=== PATIENT | female | born 1955 | race Caucasian/White ===

== ENCOUNTER 2021-11-06 04:39 | Inpatient (IN) ==
[2021-11-06] MEDS ORDERED: 0.9 % Sodium Chloride 1,000 ML IVC ONE (05:02)
[2021-11-06] MEDS ORDERED: Ondansetron 4 MG/2 ML VIAL IVP ONE ×2 (05:15→06:53)
[2021-11-06 05:46] LABS: Basophils % 0.4 %; Eosinophils % 0.2 %; Hemoglobin 15.7 g/dL (11.5-15.4); Immature Granulocytes % 0.2 % (0-4); Lymphocytes # 1.4 K/mcL (0.6-4.6); Lymphocytes % 26.4 %; Mean Corpuscular HGB Conc 33.4 g/dL (31.6-35.5); Mean Corpuscular Hemoglobin 31.2 pg (28.0-33.3); Mean Corpuscular Volume 93.4 fL (83.0-100.0); Mean Platelet Volume 12.1 fL (9.4-12.4); Monocytes # 0.3 K/mcL (0.0-1.3); Monocytes % 4.9 %; Neutrophils # 3.6 K/mcL (1.6-8.9); Platelet Count 238 K/mcL (140-400); Red Blood Count 5.03 M/mcL (3.82-4.97); Segmented Neutrophils % 67.9 %; White Blood Count 5.3 K/mcL (4.3-11.1)
[2021-11-06 06:08] LABS: Alanine Aminotransferase 26 Units/L (7-52); Albumin 4.2 g/dL (3.5-5.7); Albumin/Globulin Ratio 1.3 (1.1-2.2); Alkaline Phosphatase 110 Units/L (34-104); Aspartate Amino Transferase 26 Units/L (13-39); BUN/Creatinine Ratio 23 (6-26); Bilirubin,Total 0.4 mg/dL (0.3-1.0); Blood Urea Nitrogen 15 mg/dL (8-23); Calcium 9.2 mg/dL (8.6-10.3); Carbon Dioxide 23 mEq/L (23-29); Chloride 106 mEq/L (98-107); Globulin 3.2 g/dL (2.4-3.5); Glucose 169 mg/dL (70-105); Osmolality,Calculated 293 (280-300); Potassium 3.7 mEq/L (3.5-5.1); Sodium 139 mEq/L (136-145); Total Protein 7.4 g/dL (6.4-8.9); Troponin I < 0.03 ng/mL (< 0.04); eGFR For African Americans > 60 (> 60); eGFR For Non-African Americans > 60 (> 60)
[2021-11-06 06:21] LABS: Thyroid Stimulating Hormone 3.651 mcIU/mL (0.340-5.600)
[2021-11-06] MEDS ORDERED: Isovue-370 500 ML BOTTLE IVP ONE ×2 (06:39→06:53)
[2021-11-06 06:46] LABS: INR 1.1; Prothrombin Time 12.1 Seconds (9.4-12.1)
[2021-11-06] MEDS ORDERED: Ampicillin/Sulbactam 3,000 MG in 0.9 % Sodium Chloride Mini Bag 100 ML IVPB ONE (07:51)
[2021-11-06 08:06] LABS: Acetaminophen < 10 mcg/mL (10-20); Salicylate < 2.5 mg/dL (15.0-30.0)
[2021-11-06] MEDS ORDERED: Naloxone 0.4 MG/ML INJ IVP PRN (08:31)
[2021-11-06] MEDS: Scopolamine Patch 1.5 MG PATCH.TD72 TD SCH (09:02)
[2021-11-06] MEDS: Ampicillin/Sulbactam 3,000 MG in 0.9 % Sodium Chloride Mini Bag 100 ML IVPB SCH ×2 (11:12→19:43)
[2021-11-06] MEDS: 0.9 % Sodium Chloride 1,000 ML IVC SCH (11:12)
[2021-11-06] MEDS: Sennosides 8.6 MG TABLET PO SCH (19:32)
[2021-11-06] MEDS: Baclofen 10 MG TABLET PO SCH (19:32)
[2021-11-06] MEDS: polyethylene glycoL 3350 17 GM POWD.PACK PO SCH (19:32)
[2021-11-07] MEDS: Ampicillin/Sulbactam 3,000 MG in 0.9 % Sodium Chloride Mini Bag 100 ML IVPB SCH ×5 (00:14→23:58)
[2021-11-07] MEDS: 0.9 % Sodium Chloride 1,000 ML IVC SCH (02:26)
[2021-11-07 04:17] LABS: Basophils % 0.1 %; Hematocrit 38.4 % (35.3-44.9); Immature Granulocytes % 0.4 % (0-4); Lymphocytes # 1.9 K/mcL (0.6-4.6); Lymphocytes % 13.2 %; Mean Corpuscular HGB Conc 33.1 g/dL (31.6-35.5); Mean Corpuscular Hemoglobin 31.2 pg (28.0-33.3); Mean Corpuscular Volume 94.3 fL (83.0-100.0); Mean Platelet Volume 12.3 fL (9.4-12.4); Monocytes # 0.9 K/mcL (0.0-1.3); Monocytes % 6.1 %; Neutrophils # 11.2 K/mcL (1.6-8.9); Platelet Count 183 K/mcL (140-400); Red Blood Count 4.07 M/mcL (3.82-4.97); Red Cell Distribution Width 13.2 % (11.5-14.5); Segmented Neutrophils % 80.2 %
[2021-11-07 04:21] LABS: Hemoglobin 12.7 g/dL (11.5-15.4)
[2021-11-07 04:31] LABS: BUN/Creatinine Ratio 22 (6-26); Blood Urea Nitrogen 14 mg/dL (8-23); Carbon Dioxide 27 mEq/L (23-29); Chloride 112 mEq/L (98-107); Glucose 107 mg/dL (70-105); Osmolality,Calculated 299 (280-300); Potassium 3.5 mEq/L (3.5-5.1); Sodium 144 mEq/L (136-145); eGFR For African Americans > 60 (> 60); eGFR For Non-African Americans > 60 (> 60)
[2021-11-07] MEDS: *HR* Enoxaparin 40 MG/0.4 ML SYRINGE SQ SCH (06:06)
[2021-11-07] MEDS ORDERED: Dextrose 4 GM Chewable Tablets PO PRN ×2 (07:45)
[2021-11-07] MEDS ORDERED: *HR* Dextrose 50 % in Water (Syg) 50 ML SYRINGE IVP PRN (07:45)
[2021-11-07] MEDS ORDERED: D5% in Water 1,000 ML IVC PRN (07:45)
[2021-11-07] MEDS ORDERED: *HR* LORazepam 2 MG/ML VIAL IVP ONE (09:21)
[2021-11-07] MEDS: Sennosides 8.6 MG TABLET PO SCH ×2 (11:16→21:03)
[2021-11-07] MEDS: polyethylene glycoL 3350 17 GM POWD.PACK PO SCH ×2 (11:16→21:02)
[2021-11-07] MEDS: Baclofen 10 MG TABLET PO SCH ×3 (11:16→21:02)
[2021-11-07] MEDS: Insulin LISPRO 300 UNITS/3 ML VIAL SUBQ SCH ×3 (12:30→23:58)
[2021-11-07] MEDS ORDERED: Ipratropium/Albuterol Neb 3 ML IH PRN (13:34)
[2021-11-08] MEDS: Insulin LISPRO 300 UNITS/3 ML VIAL SUBQ SCH ×3 (05:44→22:36)
[2021-11-08] MEDS: Ampicillin/Sulbactam 3,000 MG in 0.9 % Sodium Chloride Mini Bag 100 ML IVPB SCH ×3 (05:44→22:37)
[2021-11-08] MEDS: *HR* Enoxaparin 40 MG/0.4 ML SYRINGE SQ SCH (05:45)
[2021-11-08 06:28] LABS: Basophils % 0.4 %; Eosinophils # 0.3 K/mcL (0.0-0.6); Eosinophils % 2.7 %; Hematocrit 38.5 % (35.3-44.9); Hemoglobin 12.7 g/dL (11.5-15.4); Immature Granulocytes % 0.4 % (0-4); Lymphocytes % 17.4 %; Mean Corpuscular Hemoglobin 31.1 pg (28.0-33.3); Mean Corpuscular Volume 94.1 fL (83.0-100.0); Mean Platelet Volume 11.5 fL (9.4-12.4); Monocytes # 0.9 K/mcL (0.0-1.3); Monocytes % 7.7 %; Platelet Count 156 K/mcL (140-400); Red Blood Count 4.09 M/mcL (3.82-4.97); Red Cell Distribution Width 13.2 % (11.5-14.5); Segmented Neutrophils % 71.4 %; White Blood Count 11.2 K/mcL (4.3-11.1)
[2021-11-08 07:05] LABS: BUN/Creatinine Ratio 22 (6-26); Blood Urea Nitrogen 11 mg/dL (8-23); Carbon Dioxide 18 mEq/L (23-29); Chloride 112 mEq/L (98-107); Glucose 108 mg/dL (70-105); Osmolality,Calculated 294 (280-300); Potassium 3.6 mEq/L (3.5-5.1); Sodium 142 mEq/L (136-145); eGFR For African Americans > 60 (> 60); eGFR For Non-African Americans > 60 (> 60)
[2021-11-08] MEDS ORDERED: D5% in 0.9% NACL 1,000 ML IVC SCH (07:30)
[2021-11-08 09:13] LABS: Adenovirus Not Detected (Not Detect); Bordetella Pertussis Not Detected (Not Detect); Chlamydophila pneumoniae Not Detected (Not Detect); Coronavirus 229E Not Detected (Not Detect); Coronavirus HKU1 Not Detected (Not Detect); Coronavirus NL63 Not Detected (Not Detect); Coronavirus OC43 Not Detected (Not Detect); Human Metapneumovirus Not Detected (Not Detect); Human Rhinovirus/Enterovirus Not Detected (Not Detect); Influenza A Subtype 2009 H1 Not Detected (Not Detect); Influenza B Not Detected (Not Detect); Mycoplasma pneumoniae Not Detected (Not Detect); Parainfluenza Virus 1 Not Detected (Not Detect); Parainfluenza Virus 2 Not Detected (Not Detect); Parainfluenza Virus 3 Not Detected (Not Detect); Parainfluenza Virus 4 Not Detected (Not Detect); Respiratory Syncytial Virus Not Detected (Not Detect); SARS-CoV-2 Not Detected (Not Detect)
[2021-11-08] MEDS: Sennosides 8.6 MG TABLET PO SCH ×2 (10:07→21:36)
[2021-11-08] MEDS: polyethylene glycoL 3350 17 GM POWD.PACK PO SCH ×2 (10:07→21:36)
[2021-11-08] MEDS: Baclofen 10 MG TABLET PO SCH ×3 (10:07→22:36)
[2021-11-09] MEDS: Insulin LISPRO 300 UNITS/3 ML VIAL SUBQ SCH ×2 (02:53→05:41)
[2021-11-09] MEDS: Ampicillin/Sulbactam 3,000 MG in 0.9 % Sodium Chloride Mini Bag 100 ML IVPB SCH (03:03)
[2021-11-09] MEDS: *HR* Enoxaparin 40 MG/0.4 ML SYRINGE SQ SCH (05:40)
[2021-11-09 07:24] VITALS: BP 133/67; PULSE 75; TEMP 97.4; O2SAT 92
[2021-11-09] MEDS ORDERED: Ampicillin/Sulbactam 3,000 MG in 0.9 % Sodium Chloride Mini Bag 100 ML IVPB SCH (09:00)
[2021-11-09] MEDS: polyethylene glycoL 3350 17 GM POWD.PACK PO SCH (09:52)
[2021-11-09] MEDS: Sennosides 8.6 MG TABLET PO SCH (09:53)
[2021-11-09] MEDS: Baclofen 10 MG TABLET PO SCH (09:53)
[2021-11-09] MEDS: Scopolamine Patch 1.5 MG PATCH.TD72 TD SCH (09:59)
== END 2021-11-09 14:22 | DRG 137 ==
LOC: EMEROOARM 04:39 → 3NENU 04:39 → SUATTDRO 11:32
PROVIDERS: ADMIT Hospitalist; ATTEND Internal Medicine